=== PATIENT | male | born 1960 | race Caucasian/White ===

== ENCOUNTER → 2017-05-29 | Outpatient (CLI) | payer BC ==
--- NOTE | 2017-05-29 11:46 | RAD ---
Abdominal ultrasound, 05/29/2017: History: Periumbilical pain The gallbladder is within normal limits in size. There is a partial septation in the fundal region. No gallstones are seen. The gallbladder wall is not thickened. No bile duct dilatation is evident. The liver demonstrates increased echogenicity in a diffuse pattern most compatible with fatty change. The liver measures 20.8 cm in craniocaudad extent at the level of the right lobe. No hepatic mass is evident. The pancreas was largely obscured by overlying bowel. The spleen is within normal limits in size. A 1.4 cm cyst is noted in the right kidney. The kidneys are otherwise unremarkable without evidence of obstruction. The abdominal aorta is not dilated. The inferior vena cava is unremarkable. No free fluid is evident in the abdomen. IMPRESSION: 1. Mild hepatomegaly with increased hepatic echogenicity suggesting hepatic steatosis. 2. Small right renal cyst.
== END | disposition home or self-care (01) ==
LOC: US 07:48
PROVIDERS: ATTEND Family Medicine
DX: N28.1 Cyst of kidney, acquired (principal); R16.0 Hepatomegaly, not elsewhere classified
CPT/HCPCS: 76700

== ENCOUNTER → 2021-08-28 | Outpatient (CLI) | payer BC ==
--- NOTE | 2021-08-29 10:15 | RAD ---
Exam Date: 08/28/2021 11:13 AM US ABDOMEN COMPLETE Indication: Reason: CYST OF KIDNEY, F/U HEPATIC STEATOSIS, 6 WEEK RT FLANK PAIN / Spl. Instructions: / History: . TECHNIQUE: Multiple longitudinal and transverse sonographic images of the abdomen are submitted for interpretation. FINDINGS: The liver is enlarged up to 19.6 cm and diffusely increased in echogenicity and heterogeneous in echo texture. The portal vein is patent, with hepatopetal flow. No focal intrahepatic abnormality is s een. The gallbladder is normal, without gallstones, gallbladder wall thickening or pericholecystic fluid. There is no biliary ductal dilatation, with the common bile duct measuring 5 mm. The spleen is enlarged up to 15.5 cm with normal echogenicity. The visualized abdominal aorta, infer ior vena cava and pancreas are within normal limits. There is no upper abdominal ascites. There is a 3.1 cm simple cyst in the right kidney. The kidneys are otherwise normal in appearance, with the r ight kidney measuring 11.2 cm and the left kidney measuring 12.9 cm. IMPRESSION: Hepatosplenomegaly with diffusely increased hepatic echogenicity and heterogeneous echotexture, consi stent with underlying fatty infiltration and/or hepatocellular disease. This limits sonographic sens itivity. Simple right renal cyst. Electronically signed by: Zach Bustamante MD (08/29/2021 10:13 AM) [id number]
== END ==
LOC: US 11:08
PROVIDERS: ATTEND Nurse Practitioner Adult Health
DX: N28.1 Cyst of kidney, acquired (principal); R16.2 Hepatomegaly with splenomegaly, not elsewhere classified
CPT/HCPCS: 76700